=== PATIENT | male | born 1980 | race Two or more races ===

== ENCOUNTER 2023-06-28 13:06 | Emergency (ER) | payer OTHER ==
[~2023-06-28] VITALS: Ht 182.9 cm; Wt 107.0 kg
[2023-06-28] MEDS ORDERED: ACID REDUCER20 M1 (13:37)
[2023-06-28 18:01] LABS: HEMATOCRIT 48.4 % (39.0-48.0); HEMOGLOBIN 15.5 g/dL (13-16.00); MEAN CELL VOLUME 80.6 fL (80.0-100.00); MEAN CORPUSCULAR HEMOGLOBIN 25.8 pg (27.00-32.0); PLATELET COUNT 144 K/uL (150-450); RED CELL DISTRIBUTION WIDTH 14.1 % (11.5-14.5)
== END 2023-06-28 19:13 | disposition home or self-care (01) ==
LOC: ER 13:06
PROVIDERS: General Practice
DX: U07.1 COVID-19 (principal); R50.9 Fever, unspecified

== ENCOUNTER 2023-11-03 19:17 | Emergency (ER) | payer OTHER ==
[~2023-11-03] VITALS: Ht 193 cm; Wt 102.1 kg
[~2023-11-03 19:17] MED LIST: ACID REDUCER20 M1
[2023-11-03] MEDS ORDERED: FAMOTIDINE/PF 20 MG/2 ML VIAL IV PUSH STA (22:25)
== END 2023-11-03 22:41 | disposition home or self-care (01) ==
LOC: ER 19:17
DX: R10.12 Left upper quadrant pain (principal); Z88.2 Allergy status to sulfonamides

== ENCOUNTER 2023-12-01 08:14 | Outpatient (CLI) | payer OTHER | END 2023-12-01 08:25 | disposition home or self-care (01) | LOC: SONOGRAMA 08:14 | DX: K31.9 Disease of stomach and duodenum, unspecified (principal); N18.31 Chronic kidney disease, stage 3a; I10 Essential (primary) hypertension ==

== ENCOUNTER 2024-08-27 16:02 | Emergency (ER) | payer OTHER ==
[~2024-08-27] VITALS: Ht 193 cm; Wt 103.0 kg
[2024-08-27] MEDS ORDERED: CANDESARTAN CIL16 MG (16:10)
[2024-08-27 17:42] LABS: HEMATOCRIT 46.8 % (39.0-48.0); HEMOGLOBIN 15.6 g/dL (13-16.00); MEAN CELL VOLUME 79.5 fL (80.0-100.00); MEAN CORPUSCULAR HEMOGLOBIN 26.5 pg (27.00-32.0); MEAN CORPUSCULAR HGB CONC 33.4 g/dl (32.0-36.0); PLATELET COUNT 171 K/uL (150-450); RED BLOOD COUNT 5.89 M/uL (4.00-6.00); RED CELL DISTRIBUTION WIDTH 14.6 % (11.5-14.5)
[2024-08-27 18:17] LABS: ALBUMIN 3.9 gm/dL (3.4-5.0); BILIRUBIN TOTAL 0.71 mg/dL (0.3-1.2); CREATININE SERUM 1.67 mg/dL (0.70-1.30); GFR 44.92; GLOBULINA 3.9 G/DL (2.4-3.5); POTASSIUM 4.04 mEq/L (3.5-5.1); TOTAL PROTEIN 7.8 gm/dL (6.4-8.2)
== END 2024-08-27 20:00 | disposition home or self-care (01) ==
LOC: ER 16:04
PROVIDERS: Emergency Medicine
DX: R07.89 Other chest pain (principal); I10 Essential (primary) hypertension; Z88.2 Allergy status to sulfonamides

== ENCOUNTER 2024-09-02 08:45 | Outpatient (CLI) | payer OTHER ==
[~2024-09-02 08:45] MED LIST changes: +CANDESARTAN CIL16 MG
== END 2024-09-02 08:50 | disposition home or self-care (01) ==
LOC: SONOGRAMA 08:45
PROVIDERS: ATTEND General Practice
DX: E04.1 Nontoxic single thyroid nodule (principal); R22.1 Localized swelling, mass and lump, neck